=== PATIENT | male | born 1965 | race Caucasian/White ===

== ENCOUNTER 2022-08-17 07:40 | Outpatient (CLI) | payer BC | END 2022-08-17 07:41 | disposition home or self-care (01) | LOC: TBSIIMAG 07:40 | PROVIDERS: ATTEND Orthopaedic Surgery | DX: S46.211A Strain of muscle, fascia and tendon of other parts of biceps, right arm, initial encounter (principal) ==

== ENCOUNTER 2022-09-07 05:51 | Day surgery (SDC) | payer BC ==
[2022-09-06 09:52] VITALS: BMI 29.0
[2022-09-07] MEDS ORDERED: Midazolam HCl 2 mg/2 ml Vial ONE (06:20)
[2022-09-07] MEDS ORDERED: fentaNYL Citrate/PF 100 MCG/2 ML SYRINGE ONE (06:21)
[2022-09-07] MEDS ORDERED: Lidocaine 1% (PF) 30 ML VIAL ONE ×2 (06:58→07:00)
[2022-09-07] MEDS ORDERED: Ropivacaine 0.5% HCl/PF (150 MG/30 ML VIAL) ONE (06:58)
[2022-09-07] MEDS ORDERED: EPINEPHrine 1 MG/ML AMP ONE (07:00)
[2022-09-07] MEDS ORDERED: Ondansetron PF 4 MG/2 ML Vial ONE (07:01)
[2022-09-07] MEDS ORDERED: Dexamethasone 20 MG/5 ML VIAL ONE (07:01)
[2022-09-07] MEDS ORDERED: PROPOFOL 200 MG/20 ML VIAL ONE (07:01)
[2022-09-07] MEDS ORDERED: Sodium Chloride 0.9% 100 ML ONE (07:23)
[2022-09-07] MEDS ORDERED: CEFAZOLIN 2 GM VIAL ONE (07:23)
== END 2022-09-07 11:45 | disposition home or self-care (01) ==
LOC: SDC 05:51
PROVIDERS: ATTEND Orthopaedic Surgery
PROC: 0LM30ZZ Reattachment of Right Upper Arm Tendon, Open Approach (ICD-10-PCS; principal; 2022-09-07)
DX: S46.211A Strain of muscle, fascia and tendon of other parts of biceps, right arm, initial encounter (principal); E78.00 Pure hypercholesterolemia, unspecified; G47.30 Sleep apnea, unspecified; Z79.82 Long term (current) use of aspirin; Z79.899 Other long term (current) drug therapy; X50.0XXA Overexertion from strenuous movement or load, initial encounter
CPT/HCPCS: C1713; J0171; J1100; J2001; J2250; J2405; J2704; J2795; J3490